=== PATIENT | male | born 1975 | race Caucasian/White ===

== ENCOUNTER 2017-08-10 10:22 | Emergency (ER) | payer SELFPAY ==
[~2017-08-10] VITALS: Ht 167.6 cm; Wt 82.2 kg
[2017-08-10 10:32] VITALS: BP 125/78
--- NOTE | 2017-08-10 10:35 | NUR ---
PT AMBULUATED TO BED 4
--- NOTE | 2017-08-10 10:55 | NUR ---
PT HERE WITH C/O DIARRHEA X 4 DAYS, ATE [employer]ACO TRUCKS STACEY NIGHT AND RIGHT AFTER STARTED WITH SHARP EPIGATRIC ABD PAIN WITH DIARRHEA. DENIES ANY FEVERS/CHILLS. NO VOMITTING, BUT WITH MILD NAUSEA. ABD SOFT, NT TO PALAPTION, +BS X 4QUADS. WAIITNG FOR ER MD MURRAY.
[2017-08-10] MEDS ORDERED: NACL 0.9% 1,000 ML IV SCH (11:23)
[2017-08-10] MEDS ORDERED: metroNIDAZOLE 500 MG/NS PREMIX 100 ML IV STA (11:23)
[2017-08-10] MEDS ORDERED: NACL 0.9% 1,000 ML IV ONE (11:23)
--- NOTE | 2017-08-10 11:23 | NUR ---
NACL 0.9% 1000ML BOLUS STARTED
[2017-08-10] MEDS ORDERED: KETOROLAC 30 MG/ML VIAL IVP ONE (11:25)
[2017-08-10] MEDS ORDERED: GLYCOPYRROLATE 0.2 MG/ML VIAL IV ONE (11:25)
[2017-08-10] MEDS ORDERED: MORPHINE SULFATE 2 MG/ML SYR IVP ONE (11:25)
[2017-08-10] MEDS ORDERED: FAMOTIDINE 20 MG/2 ML VIAL IVP ONE (11:25)
[2017-08-10] MEDS ORDERED: ONDANSETRON 4 MG/2 ML VIAL IVP ONE (11:25)
[2017-08-10 11:56] LABS: HEMATOCRIT 48.5 % (36-52); HEMOGLOBIN 16.1 g/dL (12.0-18.0); MEAN CORPUSCULAR HEMOGLOBIN 29 pg (27-31); MEAN CORPUSCULAR HGB CONC 33 g/dL (33-37); MEAN CORPUSCULAR VOLUME 86 fL (80-94); PLATELET COUNT (AUTO) 296 K/uL (140-450); RED BLOOD CELL COUNT(AUTO) 5.64 MIL/uL (4.20-6.10); RED CELL DISTRIBUTION WIDTH 12.4 % (11.6-13.7); WHITE BLOOD COUNT (AUTO) 13.8 K/uL (4.8-10.8)
[2017-08-10 12:06] LABS: ALBUMIN 4.5 g/dL (3.4-5.0); ANION GAP 16.9 (8-16); CARBON DIOXIDE 23.7 mmol/L (21-32); CREATININE 1.1 mg/dL (0.7-1.3); POTASSIUM 3.6 mmol/L (3.5-5.1); TOTAL BILIRUBIN 1.1 mg/dL (0.0-1.0)
--- NOTE | 2017-08-10 12:09 | NUR ---
PT REPORTS FEELINGBETTER, NO DIARRHEA WHILE HERE IN ER. IV FLUIDS INFUSING WELL TO LEFT FA.
[2017-08-10 12:13] LABS: EOSINOPHILS % (MANUAL) 4 % (0-4); LYMPHOCYTES % (MANUAL) 13 % (20-46); MONOCYTES % (MANUAL) 8 % (5-12)
--- NOTE | 2017-08-10 12:23 | NUR ---
IV NS 1 LITER COMPLETED, PT TOLERATED WELL.
--- NOTE | 2017-08-10 13:49 | NUR ---
URINE COLLECTED AND SENT
[2017-08-10 13:52] LABS: APPEARANCE,URINE CLEAR (CLEAR); BILIRUBIN,URINE NEGATIVE (NEGATIVE); BLOOD, URINE NEGATIVE (NEGATIVE); COLOR,URINE YELLOW (YELLOW); LEUKOCYTE ESTERASE ,URINE NEGATIVE (NEGATIVE); NITRITE, URINE NEGATIVE (NEGATIVE); PH,URINE 5.5 (5.0-9.0); UGLUCOSE NEGATIVE (NEGATIVE)
[2017-08-10 15:15] VITALS: BP 133/64
--- NOTE | 2017-08-10 15:15 | NUR ---
IV NS @100ML DISCONTINUED. PT RECEIVED 200ML,PT TOLARTED WELL.
--- NOTE | 2017-08-10 15:16 | NUR ---
Patient discharged with v/s stable. Written and verbal after care instructions given and explained. Patient alert, oriented and verbalized understanding of instructions. Ambulatory with to car. All questions addressed prior to discharge. ID band removed. Patient advised to follow up with PMD. Rx of DOMINIQUE MANN given. Patient educated on indication of medication including possible reaction and side effects. Opportunity to ask questions provided and answered.
== END 2017-08-10 15:16 | disposition home or self-care (01) ==
LOC: MED 10:22
DX: A09 Infectious gastroenteritis and colitis, unspecified (principal)
CPT/HCPCS: 36415; 80053; 81003; 82150; 83690; 85025; 96361; 96365; 96375; 99285; J1885; J2270; J2405; J3490; J7030